=== PATIENT | female | born 1960 | race Caucasian/White ===

== ENCOUNTER 2019-05-29 08:50 | Outpatient (CLI) | payer OTHER ==
--- NOTE | 2019-05-29 10:12 | ULT ---
ABDOMINAL ULTRASOUND: HISTORY: Hepatitis C. FINDINGS: Rela-time imaging of the upper abdomen shows a normal-appearing gallbladder. The common duct is norm al in caliber at 5-6 mm. The liver measures 15.6 cm in length and shows no focal findings. [place] is within normal limits. The spleen is 9.3 cm. The pancreas, abdominal aorta, and IVC regions appear unremarkable. Right and left kidneys are within normal limits of size and not obstructed. IMPRESSION: Unremarkable abdomen ultrasound. POS: [facility]
== END 2019-05-29 08:51 | disposition home or self-care (01) ==
LOC: BICULT 08:50
PROVIDERS: ATTEND Family Medicine
DX: B19.20 Unspecified viral hepatitis C without hepatic coma (principal)
CPT/HCPCS: 93975

== ENCOUNTER → 2020-08-21 | Day surgery (SDC) | payer OTHER | LOC: MAMMO 06:43 | PROVIDERS: ATTEND Family Medicine | PROC: 0H9T0ZX Drainage of Right Breast, Open Approach, Diagnostic (ICD-10-PCS; principal; 2020-08-21) | DX: D05.11 Intraductal carcinoma in situ of right breast (principal) | CPT/HCPCS: 19081; 76098; 88305 ==